=== PATIENT | male | born 1950 | race African-American/Black ===

== ENCOUNTER 2019-02-23 12:04 | Emergency (ER) | payer MEDICARE, MEDICAID ==
[~2019-02-23] VITALS: Ht 175.3 cm; Wt 64.0 kg
[2019-02-23] MEDS ORDERED: ALBUTEROL (0.083%) 2.5MG/3ML NEB HHN STA (12:58)
[2019-02-23] MEDS ORDERED: IPRATROPIUM BROMIDE (0.02%) 0.5MG/2.5ML NEB HHN STA (12:58)
[2019-02-23] MEDS ORDERED: HYDROCODONE/ACETAMINOPHEN 5/325MG TABLET PO ONE (13:00)
[2019-02-23 15:32] VITALS: BP 128/74
== END 2019-02-23 15:35 | disposition home or self-care (01) ==
LOC: ER 12:04
DX: M54.9 Dorsalgia, unspecified (principal); J06.9 Acute upper respiratory infection, unspecified; G89.29 Other chronic pain; Z98.1 Arthrodesis status; Z98.890 Other specified postprocedural states
CPT/HCPCS: 71045; 93005; 94640; 99283; J7611

== ENCOUNTER 2021-06-27 00:04 | Emergency (ER) | payer OTHER, MEDICAID ==
[~2021-06-27] VITALS: Ht 172.7 cm; Wt 70.0 kg
[2021-06-27] MEDS ORDERED: HALOPERIDOL LACTATE 5MG/ML VIAL IM ONE (00:15)
[2021-06-27] MEDS ORDERED: SODIUM CHLORIDE 0.9% 1,000 ML IV ONE (00:15)
[2021-06-27] MEDS ORDERED: DIPHENHYDRAMINE 50MG/ML VIAL IM ONE (00:15)
[2021-06-27] MEDS ORDERED: LORAZEPAM 2MG/ML CPJ IM ONE (00:15)
[2021-06-27 01:21] LABS: HEMATOCRIT. 43.3 % (42.0-52.0); HEMOGLOBIN. 14.8 g/dL (14.0-18.0); MEAN PLATELET VOLUME 7.8 fl (7.4-10.4); PLATELET 167 x1000/uL (130-400); RED BLOOD CELL COUNT 4.34 mill/uL (4.7-6.1)
[2021-06-27 01:27] LABS: CHLORIDE 106 mEq/L (98-107)
[2021-06-27 01:31] LABS: ETHANOL BLOOD < 10 mg/dL
[2021-06-27 03:31] LABS: PLATELET ESTIMATE NORMAL
[2021-06-27 05:22] LABS: *AMPHETAMINES SCREEN URINE PRESUMTIVE POSITIVE (NEGATIVE); *BARBITURATES SCREEN URINE NEGATIVE (NEGATIVE); *BENZODIAZEPINES SCREEN URINE NEGATIVE (NEGATIVE); *COCAINE SCREEN URINE PRESUMTIVE POSITIVE (NEGATIVE)
[2021-06-27 05:23] LABS: CANNABINOID URINE SCREEN PRESUMTIVE POSITIVE (NEGATIVE); METHADONE URINE SCREEN NEGATIVE (NEGATIVE); OPIATES URINE SCREEN NEGATIVE (NEGATIVE); PHENCYCLIDINE URINE SCREEN PRESUMTIVE POSITIVE (NEGATIVE)
[2021-06-27] MEDS: RISPERIDONE 0.5MG TABLET PO SCH (17:00)
[2021-06-28] MEDS: RISPERIDONE 0.5MG TABLET PO SCH (09:29)
[2021-06-28 14:59] VITALS: BP 112/77
== END 2021-06-28 16:09 ==
LOC: ER 00:04
DX: S00.212A Abrasion of left eyelid and periocular area, initial encounter (principal); R45.851 Suicidal ideations; F91.8 Other conduct disorders; F15.10 Other stimulant abuse, uncomplicated; I10 Essential (primary) hypertension; F14.10 Cocaine abuse, uncomplicated; F12.10 Cannabis abuse, uncomplicated; F16.10 Hallucinogen abuse, uncomplicated; E78.00 Pure hypercholesterolemia, unspecified; Z20.822 Contact with and (suspected) exposure to COVID-19; Z78.1 Physical restraint status; Z75.1 Person awaiting admission to adequate facility elsewhere; V43.52XA Car driver injured in collision with other type car in traffic accident, initial encounter; Y93.89 Activity, other specified; Y92.488 Other paved roadways as the place of occurrence of the external cause
CPT/HCPCS: 36415; 70450; 70486; 71045; 72125; 80053; 80305; 80307; 80320; 80329; 82962; 85025; 87426; 93005; 96360; 96361; 96372; 99285; J1200; J1630; J2060; J7030; G0480